=== PATIENT | female | born 1995 | race Caucasian/White ===

== ENCOUNTER 2018-08-31 20:57 | Emergency (ER) | payer BC ==
[2018-08-31] MEDS ORDERED: DIAZEPAM 5 MG PREPACK#4 BTL TAKEHOME ONE (22:21)
--- NOTE | 2018-08-31 22:22 | EDPHY ---
H & P Stated Complaint: Jaw hurts to move for 2 days. Time Seen by Provider: 08/31/18 21:00 HPI/ROS: 23-year-old female sent from urgent care for possible jaw dislocation, presents complaining of left-sided temporomandibular joint pain that began yesterday when she was chewing something and felt like her jaw may have dislocated, she states she felt markedly better this morning but as the days progressed she has had considerable soreness in the left TMJ area and does not feel like she can open her mouth completely. She states she really noticed this when trying to eat her dinner. She has had a history of jaw clicking but never to the point of dislocation or with this kind of residual pain. Review of systems As per HPI General no fever no chills no weakness HEENT no eye pain no eye discharge. No eye redness, no sore throat Respiratory no cough, no shortness of breath Cardiac no chest pain, no peripheral edema GI no abdominal pain, no diarrhea, no constipation, no nausea, no vomiting no flank pain, no hematuria, no dysuria Musculoskeletal no myalgias, no joint pain Heme no easy bruising, no easy bleeding Endo no polyuria, no polydipsia Skin no rashes, no pruritus Neuro no syncope, no dizziness, no headaches Source: Patient Exam Limitations: No limitations - Personal History LMP (Females 10-55): 22-28 Days Ago - Medical/Surgical History Hx Asthma: No Hx Chronic Respiratory Disease: No Hx Diabetes: No Hx Cardiac Disease: No Hx Renal Disease: No Hx Cirrhosis: No Hx Alcoholism: No Hx HIV/AIDS: No Hx Splenectomy or Spleen Trauma: No Other PMH: Denies. - Family History Significant Family History: No pertinent family hx - Social History Smoking Status: Never smoked Alcohol Use: None Drug Use: None - Physical Exam Exam: 23-year-old female alert and oriented no acute distress nontoxic appearance, afebrile at, nc no evidence of jaw assymetry, positive tenderness to palpation at left tmj able to open mouth greater than 3 finger breadths neck supple lungs cta bilat heart rrr Constitutional: Initial Vital Signs Temperature (C) 36.9 C 08/31/18 21:03 Heart Rate 63 08/31/18 21:03 Respiratory Rate 16 08/31/18 21:03 Blood Pressure 121/63 H 08/31/18 21:03 O2 Sat (%) 99 08/31/18 21:03 O2 Delivery Mode Room Air Allergies/Adverse Reactions: No Known Allergies Allergy (Unverified 08/31/18 21:03) Home Medications: Medication Instructions Recorded Diazepam 5 mg PO TID PRN #15 tab 08/31/18 Medical Decision Making - Diagnostics Imaging Results: Imaging Impressions Face CT 08/31/18 21:29 Impression: Normal. Recommend MRI in the closed and open mouth position to assess for meniscal dysfunction. General information for patients regarding this examination can be found at [email or web address]. If you have questions or comments about this report, please contact me at (hospital) or [phone] (cell). Results discussed with Dr. Sarah Toussaint at 10:18 PM. ED Course/Re-evaluation: Patient seen and evaluated for left TMJ pain with concern for possible dislocation ct maxillofacial negative for mandibular fracture or dislocation Imp left tmj sprain Plan Home with valium 5 mg q8 prn spasms Avoid extreme opening of the jaw for three weeks. In some patients, placement of a padded rigid cervical collar (eg, [place]-J or Highland cervical collar) may facilitate this instruction [20]. Support the lower jaw when yawning. Apply warm compresses to the TMJ area for 24 hours. Maintain a soft diet for one week. Take nonsteroidal anti-inflammatory agents (eg, ibuprofen) as needed for pain and swelling. Undergo evaluation by board certified behavioral analyst in two to three days. Differential Diagnosis: Differential diagnosis considered but not limited to: Mandibular dislocation, unilateral TMJ sprain parotitis - Data Points Medications Given: Discontinued Medications Diazepam (Valium 5 Mg Prepack#4) 1 btl [place] [facility] Stop: 08/31/18 22:22 Last Admin: 08/31/18 22:36 Dose: 1 btl Point of Care Test Results: Urine Collection Date 08/31/18 Collection Time 21:25 HCG Results Negative Departure - Departure Disposition: Home, Routine, Self-Care Clinical Impression: TMJ (sprain of temporomandibular joint) Condition: Good Instructions: Diazepam (By mouth), Temporomandibular Disorder (ED) Additional Instructions: Avoid extreme opening of the jaw for three weeks. In some patients, placement of a padded rigid cervical collar (eg, [place]-J or [place]land cervical collar) may facilitate this instruction [20]. Support the lower jaw when yawning. Apply warm compresses to the TMJ area for 24 hours. Maintain a soft diet for one week. Take nonsteroidal anti-inflammatory agents (eg, ibuprofen) as needed for pain and swelling. Undergo evaluation by board certified behavioral analyst in two to three days. Referrals: NONE *PRIMARY CARE P,. [Primary Care Provider] - As per Instructions Prescriptions: Diazepam 5 mg PO TID PRN #15 tab PRN Reason: Spasms
[2018-08-31 23:00] VITALS: BP 110/73
== END 2018-08-31 22:50 | disposition home or self-care (01) ==
LOC: CED 20:57
DX: M26.602 Left temporomandibular joint disorder, unspecified (principal)
CPT/HCPCS: 70486-PO; 99284-ER

== ENCOUNTER → 2019-02-04 | Outpatient (CLI) | payer OTHER, BC | LOC: BMCIMAGING 10:42 ==